=== PATIENT | male | born 1940 | race Caucasian/White ===

== ENCOUNTER 2022-01-29 10:10 | Day surgery (SDC) | payer MEDICARE ==
--- NOTE | 2022-01-29 08:48 | HP ---
DATE OF SURGERY: 01/29/2022 HISTORY OF PRESENT ILLNESS: The patient is an 81-year-old had biopsy of the scalp, had some squamous cell carcinoma. He is in need of wide excision. PAST MEDICAL HISTORY: Hypertension, coronary artery disease, asthma. PAST SURGICAL HISTORY: Appendectomy in the past. Coronary stents in the past. MEDICATIONS: Includes Asmanex Inhaler, Cetirizine, Combivent Respimat, finasteride, metoprolol, omeprazole, Proventil HFA, Simvastatin. ALLERGIES: PENICILLIN. SULFA. PREDNISONE. FAMILY HISTORY: Negative in regards to this specific problem. SOCIAL HISTORY: No smoking. REVIEW OF SYSTEMS: Fourteen systems reviewed. No chest pain or palpitations. Other systems negative or noncontributory as above and per preadmission questionnaire. PHYSICAL EXAMINATION: GENERAL: No acute distress. HEENT: Sclerae nonicteric. NECK: No JVD. CHEST: Equal excursion, nonlabored breathing. CVS: Regular rate and rhythm. ABDOMEN: Soft. No peritoneal signs. EXTREMITIES: No cyanosis. NEURO: Alert, oriented, moving extremities symmetrically. PSYCH: Appropriate mood and affect. SKIN: Scalp he has got the nonhealing lesion on his scalp. IMPRESSION: History of squamous cell carcinoma on biopsy of the scalp by Dr. Doss. He is in need of wide excision. Given the size of the lesion and the location, will try to close but might require possible skin graft if unable to close or heal by secondary intent. He was explained the risks and benefits explained in detail including but not limited to bleeding or infection, risk of involved margins possibly requiring other wider excision or other treatments, possibility if unable to close may need to use a skin graft, likely will not regrow hair in that area. General risk of anesthesia, deep venous thrombosis, pulmonary embolism or pneumonia, risk of cardiopulmonary event given his comorbidities but not limited to, consent obtained. Will proceed with wide excision of scalp squamous cell carcinoma biopsy site possible skin graft as an outpatient.
[~2022-01-29 10:10] MED LIST: Lactated Ringers 1,000 ML IV ONE; Sensorcaine 0.25% 10 ML ONE
[2022-01-29] MEDS ORDERED: CLINDAMYCIN-D5W 900 MG/50 ML*** 900 MG/50 ML BAG IV SCH (11:30)
[2022-01-29] MEDS ORDERED: Lactated Ringers 1,000 ML IV SCH (12:00)
[2022-01-29] MEDS ORDERED: DIPRIVAN 200 MG/20 ML IV ONE (12:23)
[2022-01-29] MEDS ORDERED: Zofran 4 MG/2 ML VIAL ONE (12:23)
[2022-01-29] MEDS ORDERED: SUBLIMAZE 100 MCG/2 ML ONE (12:23)
[2022-01-29] MEDS ORDERED: Quelicin Fliptop 200 MG/10 ML ONE (12:23)
[2022-01-29] MEDS ORDERED: Xylocaine-Mpf 2% 5 Ml Vial ONE (12:25)
[2022-01-29] MEDS ORDERED: Pre-Attached Lta Kit TP ONE (12:45)
[2022-01-29] MEDS ORDERED: Sensorcaine 0.25% 10 ML ONE (12:47)
[2022-01-29] MEDS ORDERED: Ephedrine Sulfate 50 MG/ML ONE (13:11)
[2022-01-29] MEDS ORDERED: Triple Antibiotic Ointment ONE (13:49)
[2022-01-29 15:17] VITALS: PULSE 72; O2SAT 94
[2022-01-29 15:18] VITALS: BP 164/91
--- NOTE | 2022-01-30 08:23 | OP ---
SURGERY DATE/TIME: 01/29/2022 1254 PREOPERATIVE DIAGNOSIS: Squamous cell carcinoma of scalp in need of wide excision. POSTOPERATIVE DIAGNOSIS: Squamous cell carcinoma of scalp in need of wide excision. PROCEDURE: Wide excision of scalp squamous cell carcinoma biopsy site with advancement flap closure (approximately 4 cm with margins). SURGEON: Dr. Jone Chapin. ANESTHESIA: General. 0.25% Marcaine local. ESTIMATED BLOOD LOSS: Minimal. INDICATIONS: As noted above. Risks and benefits explained in detail and not limited to and consent obtained. DESCRIPTION OF PROCEDURE AND FINDINGS: The patient is taken to the operating room. General anesthesia induced. The patient is prepped and draped in the usual sterile fashion. After official time out and no disagreement with planned procedure, the site had been confirmed with the staff. He was put in supine position with head in lateral position. Appropriate padding and positioning per anesthesia or OR staff. It should be noted that there was a main area of biopsy site. There is another questionable area off to the right and a little bit anterior. It is felt these areas should be taken en bloc therefore a spindle-shaped incision was made going out to normal appearing skin that he had available this is accomplished, this resulted including margins a 4 cm defect. The specimen is carefully dissected down to normal appearing fascia and passed off. Otherwise the deep subcu is closed with interrupted 3-0 Vicryl. Superficial subcu closed with 3-0 Vicryl. Skin closed with a combination of 3-0 and 4-0 Prolene. Antibiotic ointment and sterile dressing applied. The patient tolerated the procedure well. There were no immediate complications.
== END 2022-01-29 15:05 | disposition home or self-care (01) ==
LOC: SDC 10:10
PROVIDERS: ATTEND Surgery
DX: C44.42 Squamous cell carcinoma of skin of scalp and neck (principal)
CPT/HCPCS: 99100; J0330; J2405; J2704; J3010; A9270-GY

== ENCOUNTER 2022-09-03 11:43 | Day surgery (SDC) | payer MEDICARE ==
--- NOTE | 2022-09-03 07:51 | HP ---
DATE OF SURGERY: 09/03/2022 HISTORY OF PRESENT ILLNESS: The patient is an 82-year-old scheduled to have a right face lesion excised in the past. He also injured his hand and also wanted to consider whether he had foreign body in that area. Question of left hand exploration possible removal of foreign body possible lesion and possible skin graft pending operative findings. In addition, excising his nonhealing face lesion of indeterminate behavior. PAST MEDICAL HISTORY: He had squamous cell carcinoma in the past. Hypertension, coronary artery disease, asthma. PAST SURGICAL HISTORY: Excision of some skin cancer in the past. He had appendectomy in the past. MEDICATIONS: Asmanex, cetirizine, Combivent, finasteride, metoprolol, omeprazole, Proventil HFA, simvastatin, aspirin. ALLERGIES: PENICILLIN (BREATHING PROBLEMS). PREDNISONE (HIVES). SULFA (BREATHING PROBLEMS). FAMILY HISTORY: Negative in regards to this problem. SOCIAL HISTORY: No smoking. REVIEW OF SYSTEMS: Fourteen systems reviewed. No chest pain or palpitations. Otherwise pertinent for chronic illnesses mentioned above. PHYSICAL EXAMINATION: GENERAL: No acute distress. HEENT: Sclerae nonicteric. Right face lesion of indeterminate behavior. Question of whether recurrent carcinoma. NECK: No JVD. CHEST: Equal excursion, breath sounds symmetrical. CVS: Regular rate and rhythm. ABDOMEN: Soft, nondistended. EXTREMITIES: Left hand nonhealing area. NEURO: Alert, oriented. PSYCH: Appropriate mood and affect. IMPRESSION: He said he had an injury in the past. He questions whether he has a foreign body. Otherwise risk of carcinoma or other lesion of indeterminate behavior is unclear. Ordering some x-rays. PLAN: Left hand exploration possible removal of foreign body possible lesion excision possible skin graft in addition to the excision of the face lesion. Will proceed with left hand exploration possible removal of foreign body, possible lesion excision, possible skin graft as well as excision of right face lesion of indeterminate behavior as an outpatient. General risk of anesthesia or sedation, deep vein thrombosis, pulmonary embolism, risk of nonhealing of the wound, risk of involved margins possibly requiring other procedures, risk of failure of take of any skin graft if needed. General risk of anesthesia or sedation, aches and pains. He understands and agrees to the planned procedure, will proceed as an outpatient.
[~2022-09-03 11:43] MED LIST changes: -Lactated Ringers 1,000 ML IV ONE; +MINERAL OIL LIGHT 10 ML FOR SURGERY ONE
[2022-09-03] MEDS ORDERED: Lactated Ringers 1,000 ML IV SCH (12:00)
[2022-09-03] MEDS ORDERED: CLINDAMYCIN-D5W 900 MG/50 ML*** 900 MG/50 ML BAG IV STA (12:28)
[2022-09-03] MEDS ORDERED: Zofran 4 MG/2 ML VIAL ONE (15:33)
[2022-09-03] MEDS ORDERED: Decadron 4 MG INJ ONE (15:33)
[2022-09-03] MEDS ORDERED: Xylocaine-Mpf 2% 5 Ml Vial ONE (15:33)
[2022-09-03] MEDS ORDERED: SUBLIMAZE 100 MCG/2 ML ONE (15:33)
[2022-09-03] MEDS ORDERED: DIPRIVAN 200 MG/20 ML IV ONE (15:33)
[2022-09-03] MEDS ORDERED: Amidate 20 MG/10 ML IV ONE (15:34)
[2022-09-03] MEDS ORDERED: Triple Antibiotic Ointment ONE (16:35)
[2022-09-03] MEDS ORDERED: TORAdol 30 mg Injection ONE (17:18)
[2022-09-03 18:03] VITALS: O2SAT 98
[2022-09-03 18:12] VITALS: BP 172/86; PULSE 78
--- NOTE | 2022-09-04 08:20 | OP ---
SURGERY DATE/TIME: 09/03/2022 1533 PREOPERATIVE DIAGNOSES: 1) Nonhealing lesion of indeterminate behavior distal left hand extending towards base of left middle finger. 2) Nonhealing lesion indeterminate behavior right face x2. POSTOPERATIVE DIAGNOSES: 1) Nonhealing lesion of indeterminate behavior distal left hand extending towards base of left middle finger. 2) Nonhealing lesion indeterminate behavior right face x2. PROCEDURES: 1) Excisional biopsy approximately 2 cm base of the left middle finger distal left hand nonhealing lesion of indeterminate behavior (approximately 2 cm with local advancement flap closure). 2) Excisional biopsy of right face lateral lesion (approximately 1 cm with margins). 3) Excisional biopsy more medial right face lesion (approximately 1 cm with margins). SURGEON: Dr. Jone Chapin. RESORT MANAGER: Elvis Sullivan M.D. ANESTHESIA: General. ESTIMATED BLOOD LOSS: Minimal. INDICATIONS: As noted above. Risks and benefits explained in detail and not limited to and consent obtained. Sites were marked and confirmed in the preop holding area. DESCRIPTION OF PROCEDURE AND FINDINGS: He is taken to the operating room. General anesthesia induced. He is prepped and draped in the usual sterile fashion. After official time out and no disagreement with planned procedure, starting first with the face the area that was causing some pain. He had a site of possible early carcinoma. He had a similar area that under the bright OR lights was more visible and was nearby seemed to need excision too. It was felt these two sites should be excised. They were about 1 cm with margins. Marking out to normal appearing skin on either side spindle-shaped excision was accomplished. Dissection carried down around normal appearing subcutaneous tissue with pin point cautery 12 to 15 minutes. The specimen is passed off. It was closed with interrupted 5-0 Prolene. Good hemostasis noted. Both the separate sites were closed with around 1 cm margins. Attention was then turned to the left hand lesion. He had a foreign body x-ray that he had a tiny foreign body way medial and palmar was nowhere near where this hand lesion was. It was felt that this was not a foreign body at this point. Question whether it could be carcinoma or some variation of a cyst or other etiology. Therefore marking out to normal appearing skin around this area dissection carried down and carefully dissected the normal appearing deeper tissue the fascia overlying the vasculature and tendon muscular structures. It was felt going any deeper at this time risk function of the finger. The specimen is passed off. It measured about 2 cm with margins. The flaps were then undermined on either side and then mobilized back to the midline. It was felt that given his age the skin was just loose enough to make it worthwhile trying to close this as local advancement flaps rather than a weaker skin graft. Reinforced with interrupted 4-0 and interrupted 4-0 vertical mattress Prolene was used to bring the flaps back to the midline. Antibiotic ointment and sterile dressing applied. The patient was given a functional position splint to wrap and protect his hand. The patient tolerated the procedure well. There was no family in the waiting area right afterwards but I went back later after giving his pain prescription medication. I spoke to his . He was transferred to the recovery room in stable condition.
== END 2022-09-03 18:38 | disposition home or self-care (01) ==
LOC: SDC 11:43
PROVIDERS: ATTEND Surgery
DX: D04.39 Carcinoma in situ of skin of other parts of face (principal); C44.629 Squamous cell carcinoma of skin of left upper limb, including shoulder; L57.0 Actinic keratosis; R22.32 Localized swelling, mass and lump, left upper limb
CPT/HCPCS: 99100; A4570; J1100; J1885; J2405; J2704; J3010; A9270-GY